=== PATIENT | female | born 1985 | race Caucasian/White ===

== ENCOUNTER 2017-06-01 23:58 | Emergency (ER) | payer BC ==
--- NOTE | 2017-06-02 01:23 | EDM.PDOC ---
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 Just prior to arrival approximately 20-30 hours patient was in the shower noted that she had vaginal bleeding. Is been going on since that time. It has slowly slowed down and she is not even saturated a pad. She has no abdominal cramping. She has not had intercourse for over a week. She has had multiple miscarriages in the past. She is currently 3 para 0. She is getting progesterone ovules vaginally due to her low progesterone levels. Her hCG was 5000 6 days ago. she did have an ultrasound a couple weeks ago as well and fetus was measuring small for gestational age. Did have a heart rate in the 80s. 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 ED EXAM - Physical Exam Exam: See Below Exam Limited By: No Limitations General Appearance: Alert, WD/WN, No Apparent Distress Respiratory/Chest: No Respiratory Distress, Lungs Clear, No Accessory Muscle Use Cardiovascular: Normal Peripheral Pulses, Regular Rate, Rhythm GI/Abdominal Exam: Normal Bowel Sounds, Soft, Non-Tender, No Organomegaly, No Distention Rectal Exam: Deferred Back Exam: Normal Inspection Extremities: Normal Inspection, Normal Range of Motion, Normal Capillary Refill Neurological: Alert, Oriented, CN II-XII Intact Psychiatric: Normal Mood, Tearful Skin Exam: Warm, Dry, Intact, Normal Color Course - Vital Signs Last Recorded V/S: Last Vital Signs Temp 37.1 C 06/02/17 00:28 Pulse 90 06/02/17 00:28 Resp 16 06/02/17 00:28 BP 142/84 H 06/02/17 00:28 Pulse Ox 97 06/02/17 00:28 - Orders/Labs/Meds Labs: Laboratory Tests 06/02/17 06/02/17 Range/Units 00:11 00:25 HCG, Quant > 1324 H (0-25) mIU/ml Beta HCG, Quant 8862 mIU/ml Urine Color Yellow (YELLOW) Urine Appearance Slightly cloudy (CLEAR) Urine pH 6.0 (5.0-9.0) Ur Specific Palmer 1.020 (1.005-1.030) Urine Protein 100 H (NEGATIVE) Urine Glucose (UA) Negative (NEGATIVE) Urine Ketones Trace H (NEGATIVE) Urine Occult Blood Large H (NEGATIVE) Urine Nitrite Negative (NEGATIVE) Urine Bilirubin Small H (NEGATIVE) Urine Urobilinogen 0.2 (0.2-1.0) mg/dL Ur Leukocyte Esterase Negative (NEGATIVE) Urine RBC 50-75 H /HPF Urine WBC 0-5 (0-5/HPF) /HPF Ur Epithelial Cells Few /HPF Amorphous Sediment Few (0/HPF) /HPF Urine Bacteria Rare (0-FEW/HPF) /HPF Urine Mucus Few H /LPF - Re-Assessments/Exams Free Text/Narrative Re-Assessment/Exam: 06/02/17 01:30 I explained to the patient that this is most likely a threatened miscarriage or the beginning of a miscarriage. Due to the rather low hCG and 8 weeks as well as her previous ultrasound that showed small for gestational age as well. We do not have the capabilities of an ultrasound tonight although this would not change our course of action at this time. Follow-up with primary care tomorrow for further care and evaluation. Support was given. I did explain to her that this could possibly be a subchorionic hemorrhage as well. As her bleeding has somewhat subsided. Although this would need to be evaluated by an ultrasound. Departure - Departure Time of Disposition: 01:20 Disposition: Home, Self-Care 01 Clinical Impression: Vaginal bleeding during , Threatened miscarriage in early - Discharge Information Instructions: Vaginal Bleeding During , First Trimester, [id number] Forms: ED Department Discharge Additional Instructions: See OB friday. Tylenol and or Ibuprofen as needed for pain. Return to the ED if worsening bleeding or abd cramping. - Assessment/Plan Assessment:: Threatened miscarriage, vaginal bleeding during , low HCG. possibility of a subchorionic hemorrhage as well. Plan: See OB friday. Tylenol and or Ibuprofen as needed for pain. Return to the ED if worsening bleeding or abd cramping.
[2017-06-02 01:29] VITALS: BP 149/102
== END 2017-06-02 01:31 | disposition home or self-care (01) ==
LOC: DL.ED 23:58
DX: O20.0 Threatened abortion (principal); Z88.2 Allergy status to sulfonamides; Z79.899 Other long term (current) drug therapy; Z3A.01 Less than 8 weeks gestation of pregnancy
CPT/HCPCS: 36415; 81001; 84702; 99284

== ENCOUNTER 2019-05-13 14:48 | Emergency (ER) | payer SELFPAY ==
[2019-05-13 15:13] VITALS: BP 146/100; PULSE 104
[2019-05-13] MEDS ORDERED: Sodium Chloride 0.9% 10 ML Syringe FLUSH PRN (15:13)
[2019-05-13] MEDS ORDERED: Ondansetron 4 MG/2 ML SDV IV ONE (15:13)
[2019-05-13] MEDS ORDERED: Ketorolac 30 MG/ML SDV IVPUSH ONE (15:13)
[2019-05-13] MEDS ORDERED: Sodium Chloride 0.9% 1,000 ML IV ONE (15:13)
--- NOTE | 2019-05-13 15:21 | EDM.PDOC ---
<Jagdish Moseley - Last Filed: 05/13/19 16:24> ED HPI GENERAL MEDICAL PROBLEM - General Chief Complaint: Fever Stated Complaint: FEVER Time Seen by Provider: 05/13/19 15:16 Source of Information: Reports: Patient, RN, RN Notes Reviewed History Limitations: Reports: No Limitations - History of Present Illness INITIAL COMMENTS - FREE TEXT/NARRATIVE: States she was seen in the clinic Friday and told she had Influenza but no lab work or flu swab was collected. Put on Tamiflu which she states has not helped. Using tylenol, Nyquil, Dayquil for symtoms. Last dose tylenol was around 1000 today. States fevers are 103.6 at home and 101 with tylenol now. Concerned she may have pneumonia since last time she had fevers like this she had pneumonia. Coughed up some green phlegm yesteday. Is nauseated, vomited at noon. Symptoms started on Friday. She has not been able to keep any fluids down and has no appetite. Onset Date: 05/10/19 Duration: Constant Location: Reports: Head, Neck, Chest Quality: Reports: Ache Severity: Moderate Improves with: Reports: None Worsens with: Reports: None Associated Symptoms: Reports: Cough, cough w sputum, Fever/Chills, Headaches, Loss of Appetite, Nausea/Vomiting, Shortness of Breath. Denies: Chest Pain Treatments PATIENT ACCOUNTS MANAGER: Reports: Acetaminophen, Other Medication(s) (nyquil, dayquil) - Related Data Allergies Allergy/AdvReac Type Severity Reaction Status Date / Time Sulfa (Sulfonamide Allergy Hives Verified 05/13/19 14:58 Antibiotics) environmental Allergy nasal Uncoded 05/13/19 14:59 congestion Home Meds: Home Meds cloNIDine HCL [Clonidine HCl] 0.5 tab PO ASDIRECTED PRN 05/13/19 [History] Past Medical History - Past Health History Medical/Surgical History: Denies Medical/Surgical History Genitourinary History: Reports: Other (See Below) Other Genitourinary History: uterine fibroids 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 Denies: Chills HEENT: Reports: Throat Pain. Denies: Ear Pain, Eye Discharge, Nose Pain, Rhinitis, Sinus Problem, Throat Swelling Respiratory: Reports: Shortness of Breath, Cough, Sputum. Denies: Wheezing Cardiovascular: Denies: Chest Pain, Dyspnea on Exertion, Edema, Lightheadedness , Palpitations, Syncope Endocrine: Reports: No Symptoms GI/Abdominal: Reports: Decreased Appetite, Nausea, Vomiting. Denies: Abdominal Pain, Constipation, Diarrhea, Difficulty Swallowing : Reports: No Symptoms Musculoskeletal: Reports: No Symptoms Skin: Reports: No Symptoms Neurological: Reports: Headache. Denies: Confusion, Dizziness, Syncope Psychiatric: Denies: Agitation, Anxiety, Confusion, Depression Hematologic/Lymphatic: Reports: No Symptoms Immunologic: Reports: No Symptoms ED EXAM, GENERAL - Physical Exam Exam: See Below Exam Limited By: No Limitations General Appearance: Alert, WD/WN, Mild Distress Eye Exam: Bilateral Eye: EOMI, Normal Inspection, PERRL Ears: Normal External Exam, Normal Canal, Hearing Grossly Normal, Normal TMs Ear Exam: Bilateral Ear: Auricle Normal, Canal Normal, TM normal Nose: Normal Inspection, Normal Mucosa, No Blood Throat/Mouth: Normal Inspection, Normal Lips, Normal Teeth, Normal Gums, Normal Oropharynx, Normal Voice, No Airway Compromise Neck: Lymphadenopathy (L), Lymphadenopathy (R), Other (neck tender to touch on the sides) Respiratory/Chest: No Respiratory Distress, Lungs Clear, Normal Breath Sounds, No Accessory Muscle Use, Chest Non-Tender. No: Crackles, Rhonchi, Wheezing Cardiovascular: Normal Peripheral Pulses, Regular Rate, Rhythm, No Edema, No Gallop, No JVD, No Murmur, No Rub GI/Abdominal: Normal Bowel Sounds, Soft, No Organomegaly, No Distention, Tender (RUQ to palpation) (Female) Exam: Deferred Rectal (Female) Exam: Deferred Extremities: Normal Inspection, Normal Range of Motion, Non-Tender, Normal Capillary Refill, No Pedal Edema Neurological: Alert, Oriented, CN II-XII Intact, Normal Cognition, Normal Gait, Normal Reflexes, No Motor/Sensory Deficits Psychiatric: Normal Affect, Normal Mood Skin Exam: Warm, Dry, Intact, Normal Color, No Rash Lymphatic: Adenopathy (cervical lymphadenopathy) Course - Vital Signs Last Recorded V/S: Last Vital Signs Temp 102.3 F H 05/13/19 14:52 Pulse 104 H 05/13/19 14:52 Resp 24 H 05/13/19 14:52 BP 146/100 H 05/13/19 14:52 Pulse Ox 94 L 05/13/19 14:52 - Orders/Labs/Meds Orders: Active Orders 24 hr Category Date Time Status Peripheral IV Care [RC] . DIRECTED Care 05/13/19 15:13 Active CULTURE STREP A CONFIRMATION [] Stat Lab 05/13/19 15:20 Results STREP SCRN A RAPID W CULT CONF [] Stat Lab 05/13/19 15:20 Results Sodium Chloride 0.9% [Saline Flush] Med 05/13/19 15:13 Active 10 ml FLUSH ASDIRECTED PRN Peripheral IV Insertion Adult [OM.PC] Stat Oth 05/13/19 15:13 Ordered Medication Orders Sodium Chloride (Saline Flush) 10 ml FLUSH ASDIRECTED PRN PRN Reason: Keep Vein Open Last Admin: 05/13/19 15:35 Dose: 10 ml Labs: Laboratory Tests 05/13/19 05/13/19 05/13/19 Range/Units 15:20 15:30 15:30 WBC (5.0-10.0) 10^3/uL RBC (4.2-5.4) 10^6/uL Hgb (12.0-16.0) g/dL Hct (37.0-47.0) % MCV (80-100) fL MCH (27.0-34.0) pg MCHC (33.0-35.0) g/dL Plt Count (150-450) 10^3/uL Neut % (Auto) (42.2-75.2) % Lymph % (Auto) (20.5-50.1) % Doddridge % (Auto) (2-8) % Eos % (Auto) (1.0-3.0) % Baso % (Auto) (0.0-1.0) % Sodium 135 (135-145) mmol/L Potassium 4.0 (3.6-5.0) mmol/L Chloride 100 L (101-111) mmol/L Carbon Dioxide 23.0 (21.0-31.0) mmol/L Anion Gap 16.0 BUN 9 (7-18) mg/dL Creatinine 0.8 (0.6-1.3) mg/dL Est Cr Clr Drug Dosing 89.16 mL/min Estimated GFR (MDRD) > 60 BUN/Creatinine Ratio 11.25 Glucose 112 H (74-105) mg/dL Lactic Acid 1.1 (0.5-2.0) mmol/L Calcium 9.6 (8.4-10.2) mg/dl Total Bilirubin 0.4 (0.2-1.0) mg/dL AST 18 (10-42) IU/L ALT 19 (10-60) IU/L Alkaline Phosphatase 77 (42-121) IU/L Total Protein 8.3 H (6.7-8.2) g/dl Albumin 4.2 (3.2-5.5) g/dl Globulin 4.1 Albumin/Globulin Ratio 1.02 Amylase 36 (28-100) U/L Lipase 20 L (22-51) U/L Urine HCG, Qual Negative 05/13/19 Range/Units 15:30 WBC 11.5 H (5.0-10.0) 10^3/uL RBC 5.14 (4.2-5.4) 10^6/uL Hgb 14.7 (12.0-16.0) g/dL Hct 42.1 (37.0-47.0) % MCV 81.9 (80-100) fL MCH 28.6 (27.0-34.0) pg MCHC 34.9 (33.0-35.0) g/dL Plt Count 393 (150-450) 10^3/uL Neut % (Auto) 79.7 H (42.2-75.2) % Lymph % (Auto) 9.4 L (20.5-50.1) % Doddridge % (Auto) 9.5 H (2-8) % Eos % (Auto) 1.1 (1.0-3.0) % Baso % (Auto) 0.3 (0.0-1.0) % Sodium (135-145) mmol/L Potassium (3.6-5.0) mmol/L Chloride (101-111) mmol/L Carbon Dioxide (21.0-31.0) mmol/L Anion Gap BUN (7-18) mg/dL Creatinine (0.6-1.3) mg/dL Est Cr Clr Drug Dosing mL/min Estimated GFR (MDRD) BUN/Creatinine Ratio Glucose (74-105) mg/dL Lactic Acid (0.5-2.0) mmol/L Calcium (8.4-10.2) mg/dl Total Bilirubin (0.2-1.0) mg/dL AST (10-42) IU/L ALT (10-60) IU/L Alkaline Phosphatase (42-121) IU/L Total Protein (6.7-8.2) g/dl Albumin (3.2-5.5) g/dl Globulin Albumin/Globulin Ratio Amylase (28-100) U/L Lipase (22-51) U/L Urine HCG, Qual Laboratory Tests 05/13/19 05/13/19 Range/Units 15:20 15:30 WBC 11.5 H (5.0-10.0) 10^3/uL RBC 5.14 (4.2-5.4) 10^6/uL Hgb 14.7 (12.0-16.0) g/dL Hct 42.1 (37.0-47.0) % MCV 81.9 (80-100) fL MCH 28.6 (27.0-34.0) pg MCHC 34.9 (33.0-35.0) g/dL Plt Count 393 (150-450) 10^3/uL Neut % (Auto) 79.7 H (42.2-75.2) % Lymph % (Auto) 9.4 L (20.5-50.1) % Doddridge % (Auto) 9.5 H (2-8) % Eos % (Auto) 1.1 (1.0-3.0) % Baso % (Auto) 0.3 (0.0-1.0) % Urine HCG, Qual Negative Strep screen: Negative Influenza A&B: Negative Meds: Medications Generic Name Dose Route Start Last Admin Trade Name Freq PRN Reason Stop Dose Admin Sodium Chloride 10 ml 05/13/19 15:13 05/13/19 15:35 Saline Flush FLUSH 10 ml ASDIRECTED PRN Administration Keep Vein Open Discontinued Medications Generic Name Dose Route Start Last Admin Trade Name Freq PRN Reason Stop Dose Admin Sodium Chloride 1,000 mls @ 999 mls/hr 05/13/19 15:13 05/13/19 15:39 Normal Saline IV 05/13/19 16:13 999 mls/hr .BOLUS ONE Administration Ketorolac Tromethamine 30 mg 05/13/19 15:13 05/13/19 15:43 Toradol IVPUSH 05/13/19 15:14 30 mg ONETIME ONE Administration Ondansetron HCl 4 mg 05/13/19 15:13 05/13/19 15:42 Zofran IV 05/13/19 15:14 4 mg ONETIME ONE Administration Departure - Departure Time of Disposition: 16:45 Disposition: Home, Self-Care 01 Condition: Fair Clinical Impression: Upper respiratory infection Qualifiers: URI type: unspecified viral URI Qualified Code(s): J06.9 - Acute upper respiratory infection, unspecified - Discharge Information *PRESCRIPTION DRUG MONITORING PROGRAM REVIEWED*: Not Applicable *COPY OF PRESCRIPTION DRUG MONITORING REPORT IN PATIENT SHAKIRA: Not Applicable Instructions: Viral Respiratory Infection, [id number] Forms: ED Department Discharge Additional Instructions: Rx: Zofran 4 mg Rx: Promethazine Codeine Syrup Take Zofran every 6-8 hours for nausea/vomiting as needed. Promethazine codeine syrup for cough every 6 hours as needed[address] Do not drive while taking this medication. Rest is going to be the best thing right now along with drinking fluids to stay hydrated. It may take another 5-7 days for symptoms to resolve. You can take tylenol and ibuprofen as needed or fever and pain control as well. If symptoms do not improve after 5-7 days or worsen, follow-up with primary care provider. Sepsis Event Note - Evaluation Sepsis Screening Result: Possible Sepsis Risk - Focused Exam Vital Signs: Vital Signs Temp Pulse Resp BP Pulse Ox 05/13/19 14:52 102.3 F H 104 H 24 H 146/100 H 94 L Date Exam was Performed: 05/13/19 Time Exam was Performed: 16:24 - My Orders Last 24 Hours: My Active Orders 05/13/19 15:13 Peripheral IV Care [RC] . DIRECTED Sodium Chloride 0.9% [Saline Flush] 10 ml FLUSH ASDIRECTED PRN Peripheral IV Insertion Adult [OM.PC] Stat 05/13/19 15:20 CULTURE STREP A CONFIRMATION [RM] Stat STREP SCRN A RAPID W CULT CONF [RM] Stat - Assessment/Plan Last 24 Hours: My Active Orders 05/13/19 15:13 Peripheral IV Care [RC] . DIRECTED Sodium Chloride 0.9% [Saline Flush] 10 ml FLUSH ASDIRECTED PRN Peripheral IV Insertion Adult [OM.PC] Stat 05/13/19 15:20 CULTURE STREP A CONFIRMATION [RM] Stat STREP SCRN A RAPID W CULT CONF [RM] Stat <Belinda uHtchins - Last Filed: 05/13/19 16:47> Course - Orders/Labs/Meds Labs: Laboratory Tests 05/13/19 05/13/19 05/13/19 Range/Units 15:20 15:30 15:30 WBC (5.0-10.0) 10^3/uL RBC (4.2-5.4) 10^6/uL Hgb (12.0-16.0) g/dL Hct (37.0-47.0) % MCV (80-100) fL MCH (27.0-34.0) pg MCHC (33.0-35.0) g/dL Plt Count (150-450) 10^3/uL Neut % (Auto) (42.2-75.2) % Lymph % (Auto) (20.5-50.1) % Doddridge % (Auto) (2-8) % Eos % (Auto) (1.0-3.0) % Baso % (Auto) (0.0-1.0) % Sodium 135 (135-145) mmol/L Potassium 4.0 (3.6-5.0) mmol/L Chloride 100 L (101-111) mmol/L Carbon Dioxide 23.0 (21.0-31.0) mmol/L Anion Gap 16.0 BUN 9 (7-18) mg/dL Creatinine 0.8 (0.6-1.3) mg/dL Est Cr Clr Drug Dosing 89.16 mL/min Estimated GFR (MDRD) > 60 BUN/Creatinine Ratio 11.25 Glucose 112 H (74-105) mg/dL Lactic Acid 1.1 (0.5-2.0) mmol/L Calcium 9.6 (8.4-10.2) mg/dl Total Bilirubin 0.4 (0.2-1.0) mg/dL AST 18 (10-42) IU/L ALT 19 (10-60) IU/L Alkaline Phosphatase 77 (42-121) IU/L Total Protein 8.3 H (6.7-8.2) g/dl Albumin 4.2 (3.2-5.5) g/dl Globulin 4.1 Albumin/Globulin Ratio 1.02 Amylase 36 (28-100) U/L Lipase 20 L (22-51) U/L Urine HCG, Qual Negative 05/13/19 Range/Units 15:30 WBC 11.5 H (5.0-10.0) 10^3/uL RBC 5.14 (4.2-5.4) 10^6/uL Hgb 14.7 (12.0-16.0) g/dL Hct 42.1 (37.0-47.0) % MCV 81.9 (80-100) fL MCH 28.6 (27.0-34.0) pg MCHC 34.9 (33.0-35.0) g/dL Plt Count 393 (150-450) 10^3/uL Neut % (Auto) 79.7 H (42.2-75.2) % Lymph % (Auto) 9.4 L (20.5-50.1) % Dod[place]idge % (Auto) 9.5 H (2-8) % Eos % (Auto) 1.1 (1.0-3.0) % Baso % (Auto) 0.3 (0.0-1.0) % Sodium (135-145) mmol/L Potassium (3.6-5.0) mmol/L Chloride (101-111) mmol/L Carbon Dioxide (21.0-31.0) mmol/L Anion Gap BUN (7-18) mg/dL Creatinine (0.6-1.3) mg/dL Est Cr Clr Drug Dosing mL/min Estimated GFR (MDRD) BUN/Creatinine Ratio Glucose (74-105) mg/dL Lactic Acid (0.5-2.0) mmol/L Calcium (8.4-10.2) mg/dl Total Bilirubin (0.2-1.0) mg/dL AST (10-42) IU/L ALT (10-60) IU/L Alkaline Phosphatase (42-121) IU/L Total Protein (6.7-8.2) g/dl Albumin (3.2-5.5) g/dl Globulin Albumin/Globulin Ratio Amylase (28-100) U/L Lipase (22-51) U/L Urine HCG, Qual - Radiology Interpretation Free Text/Narrative:: [facility] [place] [facility] Final Radiology Report Call: [phone] assistance Online chat: [email or web address] Name: LIBERTAD DUNAWAY Age: 34Years F Date: 05/13/2019 SSN: -- : [id number] Study: XR CHEST 2 VIEWS FRONTAL & LAT Requesting Physician: BELINDA HUTCHINS Images: 2 Addl Studies: Provided Clinical History: Contrast: Contrast Medium: Contrast Amount: Contrast Method: CONFIDENTIALITY STATEMENT This report is intended only for use by the referring physician, and only in accordance with law. If you received this in error, call [phone]. Page 1 of 1 PROCEDURE INFORMATION: Exam: XR Chest, 2 Views Exam date and time: 05/13/2019 3:42 PM Age: 34 years old Clinical indication: Cough and fever TECHNIQUE: Imaging protocol: XR of the chest Views: 2 views. COMPARISON: No relevant prior studies available. FINDINGS: Lungs: Unremarkable. No consolidation. Pleural space: Unremarkable. No pleural effusion. No pneumothorax. Heart/Mediastinum: Unremarkable. No cardiomegaly. Bones/joints: Unremarkable. IMPRESSION: No acute findings. Thank you for allowing us to participate in the care of your patient. Dictated and Authenticated by: Lucas Silverio MD 05/13/2019 3:58 PM Central Time ([place] & [place]) - Re-Assessments/Exams Free Text/Narrative Re-Assessment/Exam: 05/13/19 15:41 I personally performed or re-performed the physical examination and medical decision making. I have verified all student documentation or findings, including history, physical exam and/or medical decision making. Sepsis Event Note - Focused Exam Date Exam was Performed: 05/13/19 Time Exam was Performed: 16:47
[2019-05-13 16:06] LABS: CHLORIDE,CL 100 mmol/L (101-111); SODIUM,NA 135 mmol/L (135-145)
== END 2019-05-13 16:55 | disposition home or self-care (01) ==
LOC: DL.ED 14:48
DX: J06.9 Acute upper respiratory infection, unspecified (principal); Z88.2 Allergy status to sulfonamides; Z91.048 Other nonmedicinal substance allergy status; Z90.49 Acquired absence of other specified parts of digestive tract
CPT/HCPCS: 36415; 71046; 80053; 81025; 82150; 83605; 83690; 85025; 87081; 87430; 87804; 96361; 96374; 96375; 99283; J1885; J2405; J7030